=== PATIENT | male | born 1940 | race Caucasian/White ===

== ENCOUNTER 2017-06-23 07:19 | Day surgery (SDC) | payer OTHER ==
[2017-06-23] MEDS ORDERED: Lactated Ringers 1,000 ML IV SCH (08:00)
[2017-06-23] MEDS ORDERED: fentaNYL 100 MCG/2 ML SDV ONE (08:07)
[2017-06-23] MEDS ORDERED: Propofol 200 MG/20 ML SDV ONE (08:07)
[2017-06-23] MEDS ORDERED: Midazolam 1 MG/ML 2 ML SDV ONE (08:07)
[2017-06-23 10:36] VITALS: BP 104/58
--- NOTE | 2017-06-24 08:04 | OR ---
DATE OF PROCEDURE: 06/23/2017 PREOPERATIVE DIAGNOSIS: History of colon polyps. POSTOPERATIVE DIAGNOSES: Diverticulosis, history of colon polyps. PROCEDURE: Colonoscopy to the cecum. SURGEON: David Orona MD. ANESTHESIA: IV anesthesia with monitored anesthesia care. INDICATIONS: This 76-year-old white male is referred by the [facility] for a colonoscopy because of a history of colon polyps. He says his last colonoscopic exam was done five years ago. I counseled him for a colonoscopy with possible biopsy and /or polypectomy including risks and alternatives, and he gave his informed consent to proceed. DESCRIPTION OF PROCEDURE: The patient was placed in the left lateral decubitus position. IV anesthesia was administered by the Anesthesia Service. Time-out was held. A rectal exam was performed, which was unremarkable. The flexible video Olympus colonoscope was introduced through his anus, up his rectum, and out his colon all the way to the cecum. Once the cecum was reached, the scope was slowly withdrawn, examining the mucosa throughout. No mucosal abnormalities were noted until we reached the left colon. Here, we saw very few scattered diverticula. There was no bleeding or inflammation associated with them. The scope was retroflexed in the rectum with the distal rectum appearing unremarkable. The scope was straightened and removed. He tolerated the procedure well. David Orona MD /[id number]
== END 2017-06-23 10:43 | disposition home or self-care (01) ==
LOC: JP.SDS 07:19
PROVIDERS: ATTEND Surgery
DX: Z12.11 Encounter for screening for malignant neoplasm of colon (principal); Z86.010 Personal history of colon polyps; I25.10 Atherosclerotic heart disease of native coronary artery without angina pectoris; G45.9 Transient cerebral ischemic attack, unspecified; K21.9 Gastro-esophageal reflux disease without esophagitis; Z88.8 Allergy status to other drugs, medicaments and biological substances
CPT/HCPCS: 45378; J2250; J2704; J3010; J7120